=== PATIENT | female | born 1970 | race Caucasian/White ===

== ENCOUNTER 2019-05-27 18:10 | Emergency (ER) | payer BC ==
[~2019-05-27] VITALS: Ht 170.2 cm; Wt 136.1 kg
[~2019-05-27 18:10] MED LIST: ASPIRIN EC81 M1 PO; HYDROCODON-ACE1 EAC7 PO; IBUPROFEN 200200 M1 PO; NORCO 5-325 TA1 EACH PO; NORCO 7.5-3251 EACH PO
[2019-05-27] MEDS ORDERED: METHOCARBAMOL500 M2 PO (19:15)
[2019-05-27] MEDS ORDERED: PREDNISONE 10 M10 MG PO (19:15)
[2019-05-27 19:52] VITALS: BP 170/108
== END 2019-05-27 19:50 | disposition home or self-care (01) ==
LOC: ER 18:10
DX: S39.012A Strain of muscle, fascia and tendon of lower back, initial encounter (principal); M54.32 Sciatica, left side; E66.01 Morbid (severe) obesity due to excess calories; Z68.42 Body mass index [BMI] 45.0-49.9, adult; Z98.51 Tubal ligation status; V89.2XXA Person injured in unspecified motor-vehicle accident, traffic, initial encounter; Y93.89 Activity, other specified; Y92.89 Other specified places as the place of occurrence of the external cause; Y99.8 Other external cause status